=== PATIENT | male | born 1995 | race Hispanic/Latino ===

== ENCOUNTER 2021-11-28 16:00 | Emergency (ER) | payer OTHER, SELFPAY | END 2021-11-28 18:14 | disposition home or self-care (01) | LOC: ERS 16:00 | DX: S16.1XXA Strain of muscle, fascia and tendon at neck level, initial encounter (principal); V43.52XA Car driver injured in collision with other type car in traffic accident, initial encounter | CPT/HCPCS: 70450; 72125 ==

== ENCOUNTER 2021-11-30 13:04 | Emergency (ER) | payer SELFPAY | END 2021-11-30 15:42 | disposition home or self-care (01) | LOC: ERS 13:04 | DX: S16.1XXA Strain of muscle, fascia and tendon at neck level, initial encounter (principal); M54.9 Dorsalgia, unspecified; V89.2XXA Person injured in unspecified motor-vehicle accident, traffic, initial encounter | CPT/HCPCS: 99283 ==